=== PATIENT | male | born 1935 | race Caucasian/White ===

== ENCOUNTER 2020-01-08 08:31 | Inpatient (IN) | payer OTHER ==
[~2020-01-08] VITALS: Ht 175.3 cm; Wt 109.1 kg
[2020-01-08 08:31] VITALS: BP 209/89
[2020-01-08 09:12] LABS: URINE BILIRUBIN NEGATIVE (Negative); URINE BLOOD NEGATIVE (Negative); URINE CLARITY CLEAR; URINE COLOR YELLOW; URINE GLUCOSE-RANDOM* NEGATIVE (Negative); URINE KETONES NEGATIVE (Negative); URINE LEUKOCYTES-REFLEX NEGATIVE (Negative); URINE NITRITE-REFLEX NEGATIVE (Negative); URINE PROTEIN (DIPSTICK) NEGATIVE (Negative); URINE SPECIFIC GRAVITY 1.025 (1.005-1.035); URINE UROBILINOGEN 0.2 E.U./dl (0.2-1.0)
[2020-01-08 09:13] LABS: ABSOLUTE NEUTROPHILS 5.5 thou/uL (1.4-8.2); BASOPHILS 0.6 % (0.0-2.0); EOSINOPHILS 1.1 % (0.0-3.0); HEMATOCRIT 44.9 % (42.0-52.0); LYMPHOCYTES 23.2 % (24.0-44.0); MCH 29.8 pg (26.0-34.0); MCHC 33.3 g/dL (28.0-37.0); MCV 89.5 fL (80.0-100.0); MONOCYTES 6.1 % (1.0-8.0); RBC 5.02 mil/uL (4.50-6.00); RDW 13.4 % (10.5-14.5); WBC 7.9 thou/uL (4.0-11.0)
[2020-01-08 09:21] LABS: CALCIUM 8.6 mg/dL (8.5-10.1); CREATININE 0.8 mg/dL (0.7-1.3); POTASSIUM 3.8 mmol/L (3.5-5.1)
[2020-01-08 09:35] LABS: ALBUMIN 3.8 g/dL (3.4-5.0); TOTAL BILIRUBIN 0.5 mg/dL (0.2-1.0); TOTAL PROTEIN 7.9 g/dL (6.4-8.2)
[2020-01-08 10:21] LABS: LARGE PLATELETS FEW; PLATELET COUNT 207 thou/uL (150-400)
[2020-01-08] MEDS ORDERED: LEVO-T50 MCG PO (10:48)
[2020-01-08] MEDS ORDERED: ZESTRIL30 MG PO (10:48)
[2020-01-08] MEDS ORDERED: TOPROL XL50 MG PO (10:49)
[2020-01-08] MEDS ORDERED: KAPSPARGO SPRIN50 MG PO (10:49)
[2020-01-08 14:15] VITALS: BP 164/67
[2020-01-08 14:31] VITALS: BP 164/67
--- NOTE | 2020-01-08 14:57 | NUR ---
RONN POWERS (SPOUSE) [phone]
[2020-01-08 15:16] VITALS: BP 148/59
[2020-01-08 15:50] VITALS: BP 166/61
--- NOTE | 2020-01-08 17:22 | NUR ---
PT ADMITED FROM ER. ADMISSION HX AND ASSESSMENT COMPLETED. DENIED HAVING PAIN OR DISCOMFORT. SR ON TELE. NEW ORDERS NOTED. NO CONCERNS AT THIS TIME.
[2020-01-08 20:21] VITALS: BP 163/56
[2020-01-09 00:20] VITALS: BP 160/64
[2020-01-09 04:15] LABS: HEMATOCRIT 42.5 % (42.0-52.0); MCH 29.9 pg (26.0-34.0); MCV 90.6 fL (80.0-100.0); RBC 4.69 mil/uL (4.50-6.00); RDW 13.3 % (10.5-14.5); WBC 10.1 thou/uL (4.0-11.0)
[2020-01-09 04:27] LABS: CALCIUM 8.3 mg/dL (8.5-10.1); CREATININE 0.9 mg/dL (0.7-1.3)
[2020-01-09 04:29] LABS: POTASSIUM 4.1 mmol/L (3.5-5.1)
[2020-01-09 05:14] VITALS: BP 157/68
--- NOTE | 2020-01-09 08:03 | NUR ---
ASSUME CARE 1900. PT STABLE. BP RUNS HIGH/METOPROLOL TO STABILIZE BP. DENIES ANY PAIN. MODERATEL TOLERANCE TO ACTIVITY. ASSESSMENT CHARTED. ADEQUATE REST NOTED THROUGH SHIFT/NO DISTRESS. PLAN IS TO CONTINUE TO MONITOR AND TREAT HIGH BP. COMPLAINS OF NAUSEA BUT NO VOMITING NOTED. WUILL CONTINUE TO MONITOR AND FOLLOW WIHT POC
--- NOTE | 2020-01-09 08:10 | EKG ---
[facility] [place] [address] ELECTROCARDIOGRAM REPORT Name: GIOJUANCARLOS SMITH Room #: 210-P ADM IN M.R.#: [id number] Admission: 01/08/20 Attend Phys: Gregg Meek MD Discharge: Date of : 39 Report #: [id number] THIS REPORT FOR: cc: Juancarlos Izquierdo James L. DO Couchonnal, Luis F. MD ~ THIS REPORT FOR: //name// [facility] ED Test Date: 2020-01-08 Test Time: 09:02:48 Pat Name: JUANCARLOS POWERS Department: Room: 210 Gender: M Documentation Consultant: FRANCIE : 1935 Requested By: Shira Anderson Order Number: [id number] MD: Sterling Lopez Measurements Intervals [place] Rate: 50 P: -7 OH: 231 QRS: -48 QRSD: 134 T: 82 QT: 531 QTc: 485 Interpretive Statements Sinus rhythm Prolonged OH interval RBBB and LAFB Left ventricular hypertrophy Anterior Q waves, possibly due to LVH No previous ECG available for comparison Electronically Signed On 01-09-2020 8:10:06 CDT by Sterling Lopez [email or web address] <ELECTRONICALLY SIGNED> By: Sterling Lopez MD 01/09/2010 1 1 Sterling Lopez MD /EPI
[2020-01-09 09:00] VITALS: BP 162/78
[2020-01-09 11:05] VITALS: BP 153/67
[2020-01-09 16:00] VITALS: BP 187/74
--- NOTE | 2020-01-09 17:00 | NUR ---
ASSESSMENT CHARTED - MEDS PER JUN - STARTED ON [facility] THIS AFTERNOON ORDERED. PT SEEN BY PHYS / OCC THERAPY - AMBULATED IN ROOM AND [place] WITH USE OF WALKER. PT UNSTEADY ON HIS FEET AND TIMES - STUBLES TO THE SIDE AND CO'S OF BEING SLIGHTLY DIZZY. MARK DIET AND FLUIDS. NO CO'S OF PAIN OR NAUSEA. IV FLUIDS D/C'D ORDERED. PT UP IN THE CHIAR ALL AM AND THEN NAPPING IN BED THIS AFTERNOON. IN TO VISIT TODAY. NO CO'S AT THE PRESENT TIME.
[2020-01-09 20:30] VITALS: BP 167/70
[2020-01-10 04:45] VITALS: BP 158/52
[2020-01-10 05:05] LABS: HEMATOCRIT 43.2 % (42.0-52.0); HEMOGLOBIN 14.4 gm/dL (14.0-18.0); MCH 29.8 pg (26.0-34.0); MCHC 33.2 g/dL (28.0-37.0); MCV 89.8 fL (80.0-100.0); RBC 4.81 mil/uL (4.50-6.00); RDW 13.6 % (10.5-14.5); WBC 7.2 thou/uL (4.0-11.0)
[2020-01-10 05:17] LABS: CALCIUM 8.4 mg/dL (8.5-10.1); CREATININE 0.8 mg/dL (0.7-1.3); POTASSIUM 3.9 mmol/L (3.5-5.1)
--- NOTE | 2020-01-10 06:53 | NUR ---
ASSUME CARE 1900. PT/VITALS STABLE. BP RUNS HIGH/PT ON BP MEDS. DENIES ANY PAIN. MODERATE TOLERANCE TO ACTIVITY. BEFNEFITS FROM PT/OT. ADEQAUTE REST NOTED/NO CLINICAL DISTRESS NOTED THROUGH THE NIGHT. ASSESMENT CHARTED. PROGRESSING WELL WITH POC. PLAN IS POSSIBLE DISCHARGE TODAY. WILL CONTINUE TO MONITOR AND FOLLOW WIHT POC
[2020-01-10 07:18] LABS: TSH 2.198 uIU/mL (0.358-3.740)
[2020-01-10 08:00] VITALS: BP 163/49
[2020-01-10] MEDS ORDERED: NORVASC10 MG PO (08:30)
[2020-01-10] MEDS ORDERED: MECLIZINE HCL25 MG PO (08:30)
[2020-01-10 11:13] VITALS: BP 141/56
[2020-01-10] MEDS ORDERED: ULTRA-LIGHT RO1 EACH (14:34)
[2020-01-10 14:59] VITALS: BP 141/56
[2020-01-10 15:12] VITALS: BP 141/56
--- NOTE | 2020-01-10 15:17 | NUR ---
ASSESSMENT CHARTED - MEDS PER JUN - PT WITH CO'S OF DIZZINESS WHEN WALKING WITH PHYS THERAPY. PT UP TO THE CHAIR. MARK DIET AND FLUIDS. AT THE BEDISDE. PT HOME THIS AFTERNOON - INSTRUCTION RE HOME MEDS/ CARE AND FOLLOW UP GIVEN TO PATIENT. PT REUFUSED TO GO TO SNF SO HOME WITH HOME HEALTH. INSTRUCTION RE HOME MEDS/ CARE AND FOLLOW UP GIVEN TO PATIENT AND STATED UNDERSTANDING OF INSTRUCTION GIVEN. PT PROVIDED WITH ROLLER WALKER PRIOR TO D/C. PT LEFT UNIT VIA WHEELCHAIR - HOME VIA PVT VEHICLE ACCOMPANIED BY AND GRANDSON. NO CO'S AT TIME OF D/C. IV AND MONITOR REMOVED PRIOR TO D/C.
[2020-01-10 15:32] VITALS: BP 141/56
--- NOTE | 2020-01-10 16:20 | NUR ---
Patient admits with dizzies. Planned dc today. Therapy worked with patient and reports not safe for home. Updated phys. Sp with patient and . They report they want to return home. They have neighbors, friends and family who can assist. They have family member who is RN lives across street who can assist. Patient reports insight with ambulation. He feels he took corner too fast but realizes he did this and plans to slow down. Sp with PT and Dr Meek plan dc today. HH arranged with [facility] they cannot see patient until , thursday agreeable. Issued walker for home.
--- NOTE | 2020-01-10 16:24 | NUR ---
PT DISCHARGING TODAY AND NEEDS HH FAXED REFERRAL TO [facility] SPOKE WITH FLO IN INTAKE THEY CAN ACCEPT AND WILL BE ABLE TO START VISITS TH/THURSDAY PT IS AGREEABLE TO STARTING HH THEN FAXED DC ORDERS/SUMMARY RECEIVED CONFIRMATION AND THEY WILL NOTIFY PT TO ARRANGE VISITS.
== END 2020-01-10 15:21 | disposition home health service (06) | DRG 305 ==
LOC: ER 08:31 → 2N 10:47 → EROBS 10:47 → 2N 15:50
PROVIDERS: Emergency Medicine; ADMIT Hospitalist; ATTEND Hospitalist
DX: I16.1 Hypertensive emergency (principal); R42 Dizziness and giddiness; I10 Essential (primary) hypertension; E03.9 Hypothyroidism, unspecified; I16.0 Hypertensive urgency; Z79.899 Other long term (current) drug therapy; Z88.1 Allergy status to other antibiotic agents
CPT/HCPCS: 10081